=== PATIENT | female | born 1980 | race African-American/Black ===

== ENCOUNTER 2023-05-06 08:01 | Emergency (ER) | payer OTHER ==
[2023-05-06 08:56] LABS: #Basophils 0.1 10x3/uL (0.0-0.2); #Eosinphils 0.1 10x3/uL (0.0-0.5); #Monocytes 0.3 10x3/uL (0.0-1.1); #Neutrophils 2.3 10x3/uL (1.5-8.4); %Basophils 1.4 % (0.0-2.0); %Eosinophils 2.7 % (0.0-6.0); %Lymphocytes 33.8 % (18.0-47.0); %Monocytes 7.2 % (0.0-10.0); %Neutrophils 54.7 % (40.0-75.0); Hemoglobin 9.4 g/dL (12.0-15.5); Red Blood Cell (RBC) Count 4.52 10x6/uL (3.90-5.03); White Blood Cell (WBC) Count 4.1 10x3/uL (3.5-10.5)
[2023-05-06] MEDS ORDERED: Ondansetron PF 4 MG/2 ML Vial ONE (08:59)
[2023-05-06 09:03] LABS: Bilirubin Neg (Negative); Blood, Urine 10 (Negative); Clarity Slightly Cloudy (Clear); Glucose, Urine (Dipstick) Normal (Negative); Ketone, Urine Negative (Negative); Leukocyte 500 (Negative); Nitrite Negative (Negative); Protein, Urine (Dipstick) 30 mg/dl (Neg-Trace)
[2023-05-06 09:07] LABS: Pregnancy Test - Urine (BHCG) Negative (Negative); Pregu Control Background? CLEAR/WHITE (CLR/WHITE); Pregu Control Bar Appear? YES (CONTROL BAR)
[2023-05-06 09:13] LABS: Bacteria/HPF 2+ HPF (None Seen); CAUTI Indications for Culture Pelvic or flank pain; RBC/HPF 0-3 HPF (0-3); WBC/HPF 21-50 HPF (0-3)
[2023-05-06 09:14] LABS: Urine Culture Reflex Yes Yes
[2023-05-06 09:26] LABS: ALT (SGPT) 8 U/L (8-55); AST (SGOT) 19 U/L (5-34); Albumin 3.8 g/dL (3.5-5.0); Alkaline Phosphatase 61 U/L (40-110); Anion Gap 10 mmol/L (10-20); BUN (Urea Nitrogen) 9 mg/dL (7.0-18.7); Bilirubin, Total 0.4 mg/dL (0.2-1.2); Calc. Creatinine Clearance 0 mL/min (70-130); Carbon Dioxide 24 mmol/L (22-29); Chloride 106 mmol/L (98-107); Estimated GFR 88; Globulin 3.4 g/dL (2.4-3.5); Glucose 90 mg/dL (70-105); Potassium 3.7 mmol/L (3.5-5.1); Protein, Total 7.2 g/dL (6.0-8.3); Sodium 136 mmol/L (136-145)
[2023-05-06 09:31] LABS: Anisocytosis SLIGHT = 6-15 cells (100X) (0-5/hpf); Hematocrit 32.7 % (34.9-44.5); Mean Corpuscular HGB CONC 28.7 g/dL (32.0-36.0); Mean Corpuscular Hemoglobin 20.8 pg (27.0-33.0); Mean Corpuscular Volume 72.3 fl (81.6-98.3); Mean Platelet Volume 9.7 fl (7.4-10.4); Microcytosis SLIGHT = 6-15 cells (100X) (0-5/hpf); Platelet Adequacy Comment Appears Adequate; Platelet Count 247 10x3/uL (150-450); RBC Distribution Width 17.7 % (11.5-14.5)
[2023-05-06] MEDS ORDERED: Ketorolac Tromethamine 30 MG/ML VIAL ONE (09:35)
[2023-05-06 09:40] LABS: SARS-CoV-2 NAA Rapid Test Not Detected (NotDetected)
== END 2023-05-06 10:40 | disposition home or self-care (01) ==
LOC: CSHERS 08:01
DX: N39.0 Urinary tract infection, site not specified (principal); Z20.822 Contact with and (suspected) exposure to COVID-19
CPT/HCPCS: 74177; 80053; 81001; 81025; 85025; 87086; 96361; 96374; 96375; J1885; J2405

== ENCOUNTER 2023-05-26 16:48 | Emergency (ER) | payer OTHER | END 2023-05-26 20:04 | disposition left against medical advice (07) | LOC: CSHERS 16:48 | DX: Z53.21 Procedure and treatment not carried out due to patient leaving prior to being seen by health care provider (principal) ==

== ENCOUNTER 2023-06-03 20:52 | Emergency (ER) | payer OTHER ==
[2023-06-03 22:08] LABS: SARS-CoV-2 NAA Rapid Test Not Detected (NotDetected)
[2023-06-03] MEDS ORDERED: predniSONE 20 MG TAB ONE (22:26)
== END 2023-06-03 22:35 | disposition home or self-care (01) ==
LOC: CSHERS 20:52
DX: J02.9 Acute pharyngitis, unspecified (principal); Z20.822 Contact with and (suspected) exposure to COVID-19
CPT/HCPCS: 87081; 87430; 99283; J7512

== ENCOUNTER 2023-07-03 08:10 | Emergency (ER) | payer OTHER ==
[2023-07-03 09:03] LABS: Bilirubin Neg (Negative); Blood, Urine 150 (Negative); Clarity Slightly Cloudy (Clear); Glucose, Urine (Dipstick) Normal (Negative); Ketone, Urine Negative (Negative); Leukocyte 100 (Negative); Nitrite Negative (Negative); Protein, Urine (Dipstick) Negative (Neg-Trace); Specific Gravity, Urine 1.015 (1.005-1.030); pH, Urine 6.5 (5.0-9.0)
[2023-07-03 09:05] LABS: Pregnancy Test - Urine (BHCG) Negative (Negative); Pregu Control Background? CLEAR/WHITE (CLR/WHITE); Pregu Control Bar Appear? YES (CONTROL BAR); Specific Gravity 1.015 (1.002-1.036)
[2023-07-03 09:23] LABS: Trichomonas/HPF Rare HPF (None Seen)
[2023-07-03 09:25] LABS: CAUTI Indications for Culture Pelvic or flank pain; RBC/HPF 0-3 HPF (0-3)
[2023-07-03 09:26] LABS: Squamous Epithelial 0-3 HPF (0-3)
[2023-07-03 09:27] LABS: Bacteria/HPF 1+ HPF (None Seen)
[2023-07-03 09:28] LABS: Urine Culture Reflex No No
[2023-07-05 02:15] LABS: GC by PCR, Vaginal Swab Not Detected (NotDetected)
== END 2023-07-03 09:59 | disposition home or self-care (01) ==
LOC: CSHERS 08:10
DX: N76.0 Acute vaginitis (principal); N73.9 Female pelvic inflammatory disease, unspecified; A59.01 Trichomonal vulvovaginitis
CPT/HCPCS: 81001; 81025; 87480; 87510; 87591; 87660; 99283

== ENCOUNTER 2023-12-23 09:25 | Emergency (ER) | payer OTHER, SELFPAY | END 2023-12-23 10:30 | disposition home or self-care (01) | LOC: CSHERS 09:25 | DX: S93.602A Unspecified sprain of left foot, initial encounter (principal); X58.XXXA Exposure to other specified factors, initial encounter ==

== ENCOUNTER 2024-02-16 19:39 | Emergency (ER) | payer SELFPAY ==
[2024-02-16] MEDS ORDERED: Dexamethasone 10 MG/ML VIAL ONE (20:37)
[2024-02-16] MEDS ORDERED: Prochlorperazine 10 MG/2 ML VIAL ONE (20:37)
[2024-02-16] MEDS ORDERED: diphenhydrAMINE 50 MG/ML VIAL ONE (20:37)
[2024-02-16 20:45] LABS: #Basophils 0.07 10x3/uL (0.0-0.2); #Eosinphils 0.12 10x3/uL (0.0-0.5); #Monocytes 0.63 10x3/uL (0.0-1.1); #Neutrophils 3.65 10x3/uL (1.5-8.4); %Basophils 1.1 % (0.0-2.0); %Eosinophils 1.9 % (0.0-6.0); %Lymphocytes 30.8 % (18.0-47.0); %Monocytes 9.7 % (0.0-10.0); %Neutrophils 56.3 % (40.0-75.0); Anion Gap 12 mmol/L (10-20); BUN (Urea Nitrogen) 6 mg/dL (7.0-18.7); Calc. Creatinine Clearance 0 mL/min (70-130); Calcium 9.2 mg/dL (7.8-10.44); Carbon Dioxide 23 mmol/L (22-29); Chloride 106 mmol/L (98-107); Estimated GFR 86; Glucose 91 mg/dL (70-105); Hematocrit 31.8 % (34.9-44.5); Hemoglobin 9.4 g/dL (12.0-15.5); Mean Corpuscular HGB CONC 29.6 g/dL (32.0-36.0); Mean Corpuscular Hemoglobin 21.6 pg (27.0-33.0); Mean Corpuscular Volume 72.9 fL (81.6-98.3); Mean Platelet Volume 9.4 fL (7.4-10.4); Platelet Count 327 10x3/uL (150-450); Potassium 3.8 mmol/L (3.5-5.1); Red Blood Cell (RBC) Count 4.36 10x6/uL (3.90-5.03); Sodium 137 mmol/L (136-145); White Blood Cell (WBC) Count 6.5 10x3/uL (3.5-10.5)
== END 2024-02-16 22:00 | disposition home or self-care (01) ==
LOC: CSHERS 19:39
DX: R51.9 Headache, unspecified (principal); D50.0 Iron deficiency anemia secondary to blood loss (chronic)
CPT/HCPCS: 36415; 80048; 85025; 96374; 96375; J0780; J1100; J1200

== ENCOUNTER 2024-08-13 16:18 | Emergency (ER) | payer SELFPAY ==
[2024-08-13] MEDS ORDERED: Ketorolac Tromethamine 30 MG (1 mL) VIAL ONE (17:07)
== END 2024-08-13 17:17 | disposition home or self-care (01) ==
LOC: CSHERS 16:18
DX: K02.9 Dental caries, unspecified (principal)
CPT/HCPCS: J1885

== ENCOUNTER 2025-03-29 18:38 | Emergency (ER) | payer BC ==
[2025-03-29] MEDS ORDERED: diphenhydrAMINE 50 MG/ML VIAL ONE (19:29)
[2025-03-29] MEDS ORDERED: Ketorolac Tromethamine 30 MG (1 mL) VIAL ONE (19:29)
[2025-03-29] MEDS ORDERED: Metoclopramide HCl 10 MG (2 mL) VIAL ONE (19:29)
[2025-03-29 20:23] LABS: BHCG - Serum Negative (NEGATIVE); Pregs Control Background? CLEAR/WHITE (CLR/WHITE); Pregs Control Bar Appear? YES (CONTROL BAR)
[2025-03-29 20:32] LABS: #Basophils 0.05 10x3/uL (0.0-0.2); #Eosinophils 0.12 10x3/uL (0.0-0.5); #Monocytes 0.45 10x3/uL (0.0-1.1); #Neutrophils 2.95 10x3/uL (1.5-8.4); %Basophils 0.9 % (0.0-2.0); %Eosinophils 2.3 % (0.0-6.0); %Lymphocytes 33.0 % (18.0-47.0); %Monocytes 8.4 % (0.0-10.0); %Neutrophils 55.4 % (40.0-75.0); ALT (SGPT) 8 U/L (Less than 34); AST (SGOT) 22 U/L (11-34); Albumin 3.6 g/dL (3.1-4.5); Alkaline Phosphatase 73 U/L (40-110); Anion Gap 10 mmol/L (10-20); BUN (Urea Nitrogen) 6 mg/dL (7.0-18.7); Bilirubin, Total 0.2 mg/dL (0.3-1.2); Calc. Creatinine Clearance 0 mL/min (70-130); Calcium 9.5 mg/dL (7.8-10.44); Carbon Dioxide 28 mmol/L (22-29); Chloride 104 mmol/L (98-107); Globulin 4.2 g/dL (2.4-3.5); Glucose 95 mg/dL (70-105); Hematocrit 34.7 % (34.9-44.5); Hemoglobin 10.3 g/dL (12.0-15.5); Mean Corpuscular Hemoglobin 22.1 pg (27.0-33.0); Mean Corpuscular Volume 74.3 fL (81.6-98.3); Platelet Count 373 10x3/uL (150-450); Potassium 4.0 mmol/L (3.5-5.1); Red Blood Cell (RBC) Count 4.67 10x6/uL (3.90-5.03); Sodium 138 mmol/L (136-145); White Blood Cell (WBC) Count 5.33 10x3/uL (3.5-10.5)
== END 2025-03-29 21:35 | disposition home or self-care (01) ==
LOC: CSHERS 18:38
DX: R51.9 Headache, unspecified (principal)
CPT/HCPCS: 70450; 80053; 84703; 85025; 96374; 96375; J1200; J1885; J2765

== ENCOUNTER 2025-04-07 07:28 | Emergency (ER) | payer BC ==
[2025-04-07] MEDS ORDERED: Milk Of Magnesia 30 ML UDCUP ONE (07:45)
[2025-04-07] MEDS ORDERED: Lidocaine Viscous Sol 2% 15 ml UD Cup ONE (07:45)
[2025-04-07] MEDS ORDERED: Pantoprazole 40 MG VIAL ONE (08:44)
[2025-04-07] MEDS ORDERED: Ondansetron PF 4 MG/2 ML Vial ONE (08:44)
[2025-04-07 08:48] LABS: #Basophils 0.05 10x3/uL (0.0-0.2); #Eosinophils 0.14 10x3/uL (0.0-0.5); #Monocytes 0.41 10x3/uL (0.0-1.1); #Neutrophils 3.05 10x3/uL (1.5-8.4); %Basophils 1.0 % (0.0-2.0); %Eosinophils 2.8 % (0.0-6.0); %Lymphocytes 27.9 % (18.0-47.0); %Monocytes 8.1 % (0.0-10.0); %Neutrophils 59.8 % (40.0-75.0); Hematocrit 33.8 % (34.9-44.5); Hemoglobin 10.0 g/dL (12.0-15.5); Mean Corpuscular Hemoglobin 22.0 pg (27.0-33.0); Mean Corpuscular Volume 74.4 fL (81.6-98.3); Platelet Count 292 10x3/uL (150-450); Red Blood Cell (RBC) Count 4.54 10x6/uL (3.90-5.03); White Blood Cell (WBC) Count 5.09 10x3/uL (3.5-10.5)
[2025-04-07 09:04] LABS: ALT (SGPT) 7 U/L (Less than 34); AST (SGOT) 18 U/L (11-34); Albumin 3.5 g/dL (3.1-4.5); Alkaline Phosphatase 72 U/L (40-110); Anion Gap 7 mmol/L (10-20); BUN (Urea Nitrogen) 6 mg/dL (7.0-18.7); Calc. Creatinine Clearance 0 mL/min (70-130); Calcium 8.7 mg/dL (7.8-10.44); Carbon Dioxide 26 mmol/L (22-29); Chloride 105 mmol/L (98-107); Globulin 3.5 g/dL (2.4-3.5); Glucose 90 mg/dL (70-105); Lipase 23 U/L (8-78); Potassium 3.8 mmol/L (3.5-5.1); Sodium 134 mmol/L (136-145)
[2025-04-07 09:09] LABS: Troponin I Less than 0.010 ng/mL (< 0.028)
[2025-04-07 09:25] LABS: Bilirubin, Total 0.3 mg/dL (0.3-1.2)
== END 2025-04-07 10:05 | disposition home or self-care (01) ==
LOC: CSHERS 07:28
DX: R07.9 Chest pain, unspecified (principal); K29.70 Gastritis, unspecified, without bleeding
CPT/HCPCS: 36415; 71045; 80053; 83690; 84484; 85025; 93005; 96374; 96375; J2405; J2470; Q0162